=== PATIENT | female | born 1985 | race Caucasian/White ===

== ENCOUNTER → 2020-02-06 12:13 | Outpatient (BNVA) | payer MEDICAID, SELFPAY | PROVIDERS: Visit Provider Nurse Practitioner Family | DX: N39.0 Urinary tract infection, site not specified (principal) | CPT/HCPCS: 81000 ==

== ENCOUNTER 2024-12-11 09:41 | Outpatient (CLI) | payer OTHER, SELFPAY ==
--- NOTE | 2024-12-11 09:55 | NM_ITS ---
WS: [id number] NUCLEAR MEDICINE HIDA SCAN CLINICAL INFORMATION: RUQ PAIN TECHNIQUE: Following intravenous administration of 7.6 mCi of technetium 99m mebrofenin, images of the abdomen were obtained over the course of 60 minutes. Next, gallbladder ejection fraction was determined by obtaining preprandial and one-hour postprandial images of the gallbladder following oral ingestion of Ensure. FINDINGS: Hepatomegaly. Normal hepatic uptake at 5 minutes. Normal hepatic excretion. Gallbladder is visualized by 40 minutes. No evidence of acute cholecystitis. Normal common bile duct and small bowel activity. Decreased gallbladder ejection fraction 26% compatible with gallbladder dysfunction. Recommend correlation for chronic cholecystitis. NM/NM hepatobiliary w phar* [id number] IMPRESSION: 1. Hepatomegaly. 2. Decreased gallbladder ejection fraction 26% compatible with gallbladder dys function. Recommend correlation for chronic cholecystitis.
== END 2024-12-11 09:42 | disposition home or self-care (01) ==
LOC: RAD 09:47
PROVIDERS: PCP Nurse Practitioner Family; Visit Provider Nurse Practitioner Family
DX: K81.0 Acute cholecystitis (principal); R16.0 Hepatomegaly, not elsewhere classified
CPT/HCPCS: 78227; A9537